=== PATIENT | male | born 1985 | race Caucasian/White ===

== ENCOUNTER 2020-11-01 17:10 | Emergency (ER) | payer OTHER ==
[~2020-11-01] VITALS: Ht 180.3 cm; Wt 75.0 kg
--- NOTE | 2020-11-01 17:15 | NUR ---
CODE 250 CALLED FOR PT UPON ARRIVAL TO ASSIST GETTING HIM OUT OF CAR WHILE IN ED DRIVE[address]. PT ASSISTED TO WC THEN TAKEN TO REGISTRATION.
--- NOTE | 2020-11-01 17:22 | NUR ---
TO ROOM PER WC. CARDBOARD SPLINT IN PLACE
--- NOTE | 2020-11-01 17:55 | NUR ---
boom man completed.
--- NOTE | 2020-11-01 17:57 | NUR ---
MD present for exam.
--- NOTE | 2020-11-01 18:02 | NUR ---
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
[2020-11-01] MEDS ORDERED: HYDROmorphone 1 MG/ML, 1ML INJ ONE ×2 (18:12→19:14)
[2020-11-01] MEDS ORDERED: ONDANSETRON 2MG/ML, 2ML ONE (18:13)
[2020-11-01] MEDS: HYDROmorphone 1 MG/ML, 1ML INJ IVPush PRN ×2 (18:18→19:17)
--- NOTE | 2020-11-01 18:18 | NUR ---
Pain med given with Zofran at this time. Pt on monitor for sats.
[2020-11-01] MEDS ORDERED: ONDANSETRON 2MG/ML, 2ML IVPush ONE (18:30)
--- NOTE | 2020-11-01 19:19 | NUR ---
Pt remedicated for pain at this time. just in to discuss findings and suggested plan of care. Urinal emptied with 800ml uop.
--- NOTE | 2020-11-01 19:50 | NUR ---
Pt reassessed after medical lab scientist and states good effect noted with pain now 07/01. Pt just back to room from CT and awaiting reading and MD reassessment.
[2020-11-01 20:01] VITALS: BP 124/66
[2020-11-01] MEDS ORDERED: OXYcodone/APAP 10/325MG TABLET ONE (20:49)
--- NOTE | 2020-11-01 20:54 | NUR ---
Pt remedicated with PO med for pain at this time. Distal CMS remains with mild numbness unchanged from initial assessment after splint placement and cap refill <2 secs with good motor movement of toes. Pt awaiting registration to complete their portion of the process before MD can eprescribe pt meds and d/c him. Pt aware of this delay and calm, cooperative but verbalized some frustration.
[2020-11-01] MEDS ORDERED: HYDROcodone/APAP 10/325 MG TABLET PO ONE (21:00)
--- NOTE | 2020-11-01 21:23 | NUR ---
Report given to JAYJAY Kelly and care transferred. Workmans' Comp paperwork handed to Dr. Alba and noted he is currently working on d/c for pt.
--- NOTE | 2020-11-01 21:24 | NUR ---
received report from JAYJAY Roth
--- NOTE | 2020-11-01 21:37 | NUR ---
Patient given discharge instructions and they have confirmed that they understand the instructions. Patient ambulatory with steady gait on crutches.
== END 2020-11-01 21:40 | disposition home or self-care (01) ==
LOC: ED 20:52
DX: S93.492A Sprain of other ligament of left ankle, initial encounter (principal); S93.422A Sprain of deltoid ligament of left ankle, initial encounter; W17.89XA Other fall from one level to another, initial encounter; Y93.31 Activity, mountain climbing, rock climbing and wall climbing; Y92.69 Other specified industrial and construction area as the place of occurrence of the external cause; Y99.8 Other external cause status
CPT/HCPCS: 29515; 73590; 73610; 73700; 96374; 96375; 96376; 99284; J1170; J2405